=== PATIENT | female | born 1975 | race Caucasian/White ===

== ENCOUNTER 2016-10-17 14:03 | Emergency (ER) | payer BC ==
[~2016-10-17 14:03] MED LIST: BENADRYL25 M1 PO; CLONIDINE HCL0.1 MG PO; CYMBALTA30 MG PO; DOCUSATE SODIU100 MG PO; ENDOCET1 TA3 PO; IBUPROFEN600 MG PO; LOPRESSOR25 MG PO; MILK OF MA400 MG/5 M PO; NEURONTIN100 MG PO; NITROFURANTOIN100 M1 PO; PRILOSEC40 MG PO; TRAZODONE HCL300 MG PO; VENLAFAXINE HCL25 MG PO; [UNRECOGNIZED DRUG - OTHER] PO
--- NOTE | 2016-10-17 16:04 | ED ORDER SUMMARY ---
..... Patient: HITESH DEGROOT OrderSheet [facility] VisitID: [id number] [place] [address] 40y, F Registration Date/Time: 10/17/2016 ORDER SHEET Weight: 63.5 kg (estimated) Allergies: No Known Drug Allergy GENERAL ORDERS: CBC w Diff Urgent (14:34 10/17/2016 ABlanchette PA-C) (14:45 KKnebel R.N.) (Ack 14:45 RKaruga) CMP Urgent (14:34 10/17/2016 ABlanchette PA-C) (14:45 KKnebel R.N.) (Ack 14:45 RKaruga) UA-Culture if indicated Urgent (14:34 10/17/2016 ABlanchette PA-C) (14:45 KKnebel R.N.) (Ack 14:45 RKaruga) CT Abd/Pel wo Cont (severe right flank pain with known history of stones, ) Urgent (14:34 10/17/2016 ABlanchette PA-C) (14:45 KKnebel R.N.) (Ack 14:45 RKaruga) Urine Drug Screen Urgent (15:10/17/2016 ABlanchette PA-C) (Ack 15:13 RKaruga) MEDICATION ORDERS: IV FLUIDS: Dilaudid IV 1 mg (HIGH ALERT MEDICATION, NOW) (14:33 10/17/2016 ABlanchette PA-C) (14:44 KKnebel R.N.) IV NS with Normal Saline 1 Liter: initial bolus none -, then 1000 mL/hr for X1 (NOW) (14:33 10/17/2016 ABlanchette PA-C) (14:44 KKnebel R.N.) Zofran IV 4 mg (NOW) (14:33 10/17/2016 ABlanchette PA-C) (14:45 KKnebel R.N.) Toradol IV 30 mg (NOW) (15:10/17/2016 ABlanchette PA-C) (16:48 KKnebel R.N.) ORDER SHEET NOTES: [Electronically signed by Beena Brown R.N. (22:30 10/17/2016)] [Electronically signed by Yesi Sheehan PA-C (23:41 10/17/2016)] [Electronically locked/signed by Beena Brown R.N. (22:30 10/17/2016)]
--- NOTE | 2016-10-17 16:04 | ED NURSING NOTES ---
Clinical Report - Nurses [facility] [address] [place] [address] 10/17/2016 14:03 Patient: HITESH DEGROOT TRIAGE Triage time 14:17 Oct 17 2016. Acuity: LEVEL 3. Alert. No acute distress. --14:26 Beena Brown R.N. 14:17 10/17/16. BP: 129/87. HR: 97. RR: 20. O2 saturation: 94%. Temp: 98.1 F. Pain level now: 05/31. --14:26 Beena Brown R.N. Chief Complaint: BACK PAIN. 14:26. --16:44 Beena Brown R.N. Weight: 63.5 kg estimated. Height/Length: 63 inches. BMI: 24.8. --14:15 Beena Brown R.N. Medications Unable to Obtain. --14:21 Beena Brown R.N. Allergies No Known Drug Allergy. --14:18 Beena Brown R.N. History Arrived by private vehicle. Historian: patient. ( pt states that she has been having right flank pain for 24 hours). This started yesterday. She has had diarrhea, flank pain, nausea and vomiting. She has had severe lower back pain (since yesterday). It has been similar to previous symptoms. Treatment FIRE SUPPRESSION CAPTAIN: None. PAST MEDICAL HX: Hypertension. Immunizations: up-to-date. The patient has had a hysterectomy. Denies current . SOCIAL HX: Former smoker. Heavy alcohol use; consumes liquor drinks. Last drink was just prior to arrival. No drug use. FALL RISK ASSESSMENT: Fall risk assessment completed. No fall risk identified. NUTRITIONAL RISK ASSESSMENT: The nutritional risk assessment revealed no deficiencies. FUNCTIONAL ASSESSMENT: Functional assessment: no impairments noted. LEARNING NEEDS ASSESSMENT: The learning needs assessment revealed no barriers. SKIN INTEGRITY ASSESSMENT: Skin integrity risk assessment completed. No skin integrity risk identified. --14:26 Beena Brown R.N. PROBLEMS: Hypertension. Sinus Tachycardia. Delirium Tremens. Back Pain. Lifestyle / Substance Problems. Myofascial Strain. Fever. Post-Op Complications. Dyspnea. Abdominal Pain. Prolapse bladder and rectum. Muscle Spasm. Cystitis. Rectal Bleed. Hypomagnesemia. Hypocalcemia. Substance Abuse. Alcohol Withdrawal. Diarrhea. Vomiting. Alcoholism. Drug Poisoning. Suicide Attempt. Suicidal Ideation. Dysuria. Ureterolithiasis. Fall. Contusion. UTI - Urinary Tract Infection. Abrasion(s). Head Injury. Immunizations. LNMP - Last Normal Menstrual Period. Nephrolithiasis. Anxiety Reaction. --14:21 Beena Brown R.N. ADDITIONAL SURGERIES: Breast Augmentation. Hysterectomy. Lithotripsy. Repair of rectecle and bladder. Tummy Tuck. Uterine Ablation. --14:21 Beena Brown R.N. Interventions ID band on patient. To room. --14:26 Beena Brown R.N. PHYSICAL ASSESSMENT GENERAL / NEURO / PSYCH: Alert. Oriented X 4. Appears in pain. HEENT: Mucous membranes are pink. RESPIRATORY: Respirations not labored. CVS: Capillary refill less than 2 seconds. GI / : Abdominal tenderness in the right lower quadrant. SKIN: Skin is warm and dry. --14:27 Beena Brown R.N. NURSING PROGRESS NOTES Patient gowned. Head of bed elevated. Two patient identifiers checked. Call light placed in reach. Side rails up x 1. Bed placed in lowest position. Patient ready for evaluation- chart flagged. --14:27 Beena Brown R.N. 14:33 10/17/2016 Site #1 started via IV in the left hand with an 20g angiocath; one attempt. Blood drawn: rainbow set. Labeled in the presence of the patient and sent to the lab. Saline lock flushed. --14:43 Beena Brown R.N. 14:39 10/17/2016 Started bag #1 1000 mL IV Fluids IV NS (Saline); bolus of 1000 mL over 30 minute(s) via site #1 --14:44 Beena Brown R.N. 14:39 10/17/2016 Dilaudid (HYDROmorphone HCl PF) IVP 1 mg given over 2 minute(s) via site #1. --14:44 Beena Brown R.N. 14:39 10/17/2016 Zofran (Ondansetron HCl) IVP 4 mg given over 2 minute(s) via site #1. Allergies verified and confirmed 5 rights. IV patency established. IV site checked: no pain, redness, or swelling. IV flushed thoroughly pre- and post-medication administration. --14:45 Beena Brown R.N. 15:04 10/17/16. BP: 123/73. HR: 96. O2 saturation: 100%. Pain level now: 03/31. --15:04 Beena Brown R.N. 15:05 10/17/2016 Zofran IVP Response: pain is improving. Symptoms are the same. The patient feels the same. --15:05 Beena Brown R.N. 15:05 10/17/2016 Dilaudid IVP Response: pain is improving. Symptoms are the same. The patient feels the same. --15:05 Beena Brown R.N. 15:48. ( 911 called to notify that PT left AMA after narcotic administration without a service parts driver. Dispatch stated that a contract law specialist will call back.). --[facility] 10/17/2016 Toradol IVP 30 mg given over 2 minute(s) via site #1. Allergies verified and confirmed 5 rights. --16:48 Beena Brown R.N. 15:35 10/17/2016 Toradol IVP Response: (patient eloped from ED. gown and IV found on floor. 911 notified.). --16:49 Beena Brown R.N. DISPOSITION / DISCHARGE Departure time: 1545. ( Nurse went to check on patient and follow up on medications and found gown on ground, IV pulled out and blood droplets on floor. 911 notified that patient had left ED after given narcotics and had ETOH on board. Pt had told nurse that she drove herself to the hospital.). --16:47 Beena Brown R.N. The patient left the Emergency Department without completion of treatment. Gown found on bed. Patient paged once with no response. Notified the ED physician of patient departure. She left the Emergency Department ambulatory and via private vehicle. The patient eloped. --22:30 Beena Brown R.N. Locked/Released at 10/17/2016 22:30 by Beena Brown R.N.
--- NOTE | 2016-10-17 16:04 | ED CLINICAL REPORT ---
Clinical Report - Physicians/Mid Levels [facility] [address] [place] [address] 10/17/2016 14:03 Patient: HITESH DEGROOT Time Seen: 14:08; initial patient contact. Arrived- By private vehicle. Historian- patient. HISTORY OF PRESENT ILLNESS Chief Complaint: FLANK PAIN. (This started yesterday. She has had diarrhea, flank pain, nausea and vomiting. She has had severe lower back pain (since yesterday). It has been similar to previous symptoms. pt states she has had a number of kidney stones and 'surgery to remove stones'. states she thinks she is passing another. has severe right flank pain currently with vomiting and diarrhea.). The symptoms are described as severe. Modifying factors- worsened by movement. Relieved by rest and deep breaths. The patient has had severe, constant, sharp right-sided flank pain with nausea. No missed period(s). The patient has had urinary frequency. She has had urgency of urination. Similar symptoms previously: Many times. Recent medical care: Not recently seen/assessed. REVIEW OF SYSTEMS The patient has had nausea. She has had vomiting and diarrhea. PAST HISTORY See nurses notes. Problems: Hypertension. Back Pain. Dyspnea. Abdominal Pain. Prolapse bladder and rectum. Muscle Spasm. Cystitis. Rectal Bleed. Hypomagnesemia. Hypocalcemia. Substance Abuse. UTI - Urinary Tract Infection. Nephrolithiasis. Anxiety Reaction. Medications: Unable to Obtain. Allergies: No Known Drug Allergy. SOCIAL HISTORY Alcohol use. History of drug use. FAMILY HISTORY Negative. ADDITIONAL NOTES The nursing notes have been reviewed with agreement regarding the chief complaint, HPI, ROS, PMH and patient medications and allergies. PHYSICAL EXAM Vital Signs: 10/17/2016 15:04 BP: 123/73. HR: 96. O2 saturation: 100%. Pain level now: 03/31. 10/17/2016 14:17 BP: 129/87. HR: 97. RR: 20. O2 saturation: 94%. Temp: 98.1 F. Pain level now: 05/31. Have been reviewed. Appearance: Alert. Anxious. Appears to be in pain. Patient in mild distress. Neck: Neck supple. CVS: Heart sounds normal. Respiratory: No respiratory distress. Breath sounds normal. Abdomen: Soft and nontender. Back: Normal external inspection. No CVA tenderness. LABS, X-RAYS, AND EKG Abdominal CT: PROCEDURE: CT ABDOMEN/PELVIS W/O CONTRAST INDICATION: FLANK PAIN TECHNIQUE: Axial CT images were obtained through the abdomen and pelvis without IV contrast. Coronal and sagittal reformations were created. COMPARISON: 12/25/2015 FINDINGS: There are nonobstructing, ill-defined, intrarenal calcifications in the right kidney which are not measurable as discrete calculi. No hydronephrosis. No ureteral calcifications or hydroureter. Breast implants in place. Clear lung bases. Normal sized heart. No hiatal hernia. The unenhanced appearance of the liver, gallbladder, adrenal glands, kidneys, pancreas and spleen is normal. The abdominal aorta is normal in its course and caliber. There are no suspicious calcifications, retroperitoneal adenopathy or masses. The stomach, upper bowel loops, and mesentery are normal. There is mild thickening and irregularity of the left rectus muscle with changes suggesting abdominoplasty. No free fluid or inflammation. The uterus is surgically absent. No calcifications in the urinary bladder or distal ureters. The unenhanced appearance of the urinary bladder, pelvic vessels, and pelvic bowel loops is normal. Normal appendix. No suspicious calcifications, free pelvic fluid or mass. Intact osseous structures. IMPRESSION: 1. Wispy occasional right intrarenal calcifications, not discrete calculi. 2. Interval resolution of previous intrarenal calculi. 3. Hysterectomy and abdominoplasty 4. Findings called to the emergency room. All CT scans at this facility use dose modulation, iterative reconstruction, and/or weight-based dosing when appropriate to reduce radiation dose to as low as reasonably achievable. The study was independently viewed by me, interpreted by the radiologist and discussed with the radiologist. Laboratory Tests: UA-Culture if indicated: (ANKUSH: 10/17/2016 14:30) ( MsgRcvd 10/17/2016 14:58) Final results Test Result Flag Units (Reference) URINE COLOR YELLOW URINE APPEARANCE CLEAR URINE GLUCOSE NEGATIVE (NEGATIVE) URINE BILIRUBIN NEGATIVE (NEGATIVE) URINE KETONE NEGATIVE (NEGATIVE) URINE SPECIFIC GRAVITY <= 1.005 L (1.010-1.030) URINE PH 6.5 (5.0-8.0) URINE PROTEIN NEGATIVE (NEGATIVE) URINE UROBILINOGEN 0.2 EU/dL (0.2-1.0) URINE NITRITE NEGATIVE (NEGATIVE) URINE BLOOD NEGATIVE (NEGATIVE) URINE LEUK ESTERASE NEGATIVE (NEGATIVE) URINE RBC NONE SEEN rbc/hpf (0-1) URINE WBC NONE SEEN wbc/hpf (0-1) URINE EPITHELIAL CELLS 3-5 EPI/hpf (0-5) URINE BACTERIA NONE SEEN (NONE SEEN) URINE COMMENT CULT NOT INDICATED URINE CULTURES ARE SET-UP BASED ON THE FOLLOWING CRITERIA:POSITIVE NITRITEPOSITIVE LEUKOCYTE ESTERASEGREATER THAN 10 WHITE BLOOD CELLSMODERATE (2+) OR GREATER BACTERIA CBC w Diff: (ANKUSH: 10/17/2016 14:30) ( [facility] 10/17/2016 14:58) Final results Test Result Flag Units (Reference) WHITE BLOOD COUNT 8.1 K/uL (4.5-11.5) RED BLOOD COUNT 3.97 L M/uL (4.00-5.20) HEMOGLOBIN 12.9 gm/dL (12.0-16.0) HEMATOCRIT 38.7 % (36.0-46.0) MEAN CELL VOLUME 98 fL (80-100) MEAN CORPUSCULAR HGB 33 pg (26-34) MEAN CORPUSCULAR HGB CONC 33 g/dL (31-37) RED CELL DISTRIBUTION WIDTH 13.0 % (11.6-14.8) PLATELET COUNT 359 K/uL (150-400) NEUTROPHIL % 57.3 % (50-75) LYMPH % 34.7 % (25-40) MONO % 7.7 % (3-14) EOSINOPHIL % 0.1 % (0-4) BASOPHIL % 0.2 % (0-2) Urine Drug Screen: (ANKUSH: 10/17/2016 14:30) ( [facility] 10/17/2016 15:42) Final results Test Result Flag Units (Reference) AMPHETAMINE/METHAMPHETAMINE NEGATIVE (NEGATIVE) BARBITURATE NEGATIVE (NEGATIVE) BENZODIAZEPINE NEGATIVE (NEGATIVE) CANNABINOID NEGATIVE (NEGATIVE) COCAINE POSITIVE H (NEGATIVE) ECSTASY NEGATIVE (NEGATIVE) METHADONE NEGATIVE (NEGATIVE) OPIATE NEGATIVE (NEGATIVE) The urine drug screen is a qualitative screening test fordrug overdose and abuse. All screen results should beconsidered as presumptive.Drugs screened for are as follows:BenzodiazepinesCocaineAmphetamines/MetamphetaminesTHC (Tetrahydrocannabinol)OpiatesBarbituratesEcstasyMethadonePositive results are unconfirmed. For confirmation, notifythe lab for the specimen to be sent to the reference lab.All confirmations must be performed by a differentmethodology.The ingestion of natural herbal and plant productscontaining Ephedra/Ephedra metabolites can produce in urineone or more substances capable of cross reacting withamphetamine/methamphetamine immunoassays. These testsprovide a preliminary result only. A more specificalternative chemical method must be used to obtain aconfirmed analytical result. CMP: (ANKUSH: 10/17/2016 14:30) ( MsgRcvd 10/17/2016 15:04) Final results Test Result Flag Units (Reference) GLUCOSE 125 H mg/dL (70-110) BUN 7 mg/dL (7-18) CREATININE 0.8 mg/dL (0.6-1.3) Estimated GFR >60 mL/min Estimated GFR- >60 mL/min Note: Persistent reduction over 3 months in eGFR<60 mL/min/1.73 m2 defines CKD. Patients with eGFR values>=60 mL/min/1.73 m2 may also have CKD if evidence ofpersistent proteinuria. Additional information may be foundat www.kidney.org. SODIUM 146 H mmol/L (136-145) POTASSIUM 4.0 mmol/L (3.5-5.1) CHLORIDE 107 mmol/L (98-107) CARBON DIOXIDE 22 mmol/L (21-32) CALCIUM 8.9 mg/dL (8.5-10.1) TOTAL PROTEIN 7.8 g/dL (6.4-8.2) ALBUMIN 4.1 g/dL (3.3-5.0) BILIRUBIN, TOTAL 0.2 mg/dL (0.0-1.0) ALKALINE PHOSPHATASE 62 U/L (46-116) AST (SGOT) 20 U/L (15-37) ALT (SGPT) 27 U/L (12-78) . PROGRESS AND PROCEDURES Course of Care: Patient gowned. Head of bed elevated. Two patient identifiers checked. Call light placed in reach. Side rails up x 1. Bed placed in lowest position. Patient ready for evaluation- chart flagged. --14:27 Beena Brown R.N. 14:33 10/17/2016 Site #1 started via IV in the left hand with an 20g angiocath; one attempt. Blood drawn: rainbow set. Labeled in the presence of the patient and sent to the lab. Saline lock flushed. --14:43 Beena Brown R.N. 14:39 10/17/2016 Started bag #1 1000 mL IV Fluids IV NS (Saline); bolus of 1000 mL over 30 minute(s) via site #1 --14:44 Beena Brown R.N. 14:39 10/17/2016 Dilaudid (HYDROmorphone HCl PF) IVP 1 mg given over 2 minute(s) via site #1. --14:44 Beena Brown R.N. 14:39 10/17/2016 Zofran (Ondansetron HCl) IVP 4 mg given over 2 minute(s) via site #1. Allergies verified and confirmed 5 rights. IV patency established. IV site checked: no pain, redness, or swelling. IV flushed thoroughly pre- and post-medication administration. --14:45 Beena Brown R.N. 15:04 10/17/16. BP: 123/73. HR: 96. O2 saturation: 100%. Pain level now: 03/31. --15:04 Beena Brown R.N. 15:05 10/17/2016 Zofran IVP Response: pain is improving. Symptoms are the same. The patient feels the same. --15:05 Beena Brown R.N. 15:05 10/17/2016 Dilaudid IVP Response: pain is improving. Symptoms are the same. The patient feels the same. --15:05 Beena Brown R.N. 15:48. ( 911 called to notify that PT left AMA after narcotic administration without a boom truck driver. Dispatch stated that a contract law specialist will call back.). --16:08 Maricarmen Rojas 15:15 10/17/2016 Toradol IVP 30 mg given over 2 minute(s) via site #1. Allergies verified and confirmed 5 rights. --16:48 Beena Borwn R.N. 15:35 10/17/2016 Toradol IVP Response: (patient eloped from ED. gown and IV found on floor. 911 notified.). --16:49 Beena Brown, R.NBreonna 1550. Patient is stable. Symptoms better. CLINICAL IMPRESSION Acute right flank pain. Substance abuse problems: abuse of alcohol and cocaine. INSTRUCTIONS (LEFT AMA after receiving toradol for pain. Andrew form initiated). Warnings: GENERAL WARNINGS: Return or contact your physician immediately if your condition worsens or changes unexpectedly, if not improving as expected, or if other problems arise. Understanding of the discharge instructions verbalized by patient. (Electronically signed by Yesi Sheehan PA-C 10/17/2016 23:41)
--- NOTE | 2016-10-17 16:04 | ED NURSING NOTES ---
Clinical Report - Nurses [facility] [address] [place] [address] 10/17/2016 14:03 Patient: HITESH DEGROOT TRIAGE Triage time 14:17 Oct 17 2016. Acuity: LEVEL 3. Alert. No acute distress. --14:26 Beena Brown R.N. 14:17 10/17/16. BP: 129/87. HR: 97. RR: 20. O2 saturation: 94%. Temp: 98.1 F. Pain level now: 05/31. --14:26 Beena Brown R.N. Chief Complaint: BACK PAIN. 14:26. --16:44 Beena Brown R.N. Weight: 63.5 kg estimated. Height/Length: 63 inches. BMI: 24.8. --14:15 Beena Brown R.N. Medications Unable to Obtain. --14:21 Beena Brown R.N. Allergies No Known Drug Allergy. --14:18 Beena Brown R.N. History Arrived by private vehicle. Historian: patient. ( pt states that she has been having right flank pain for 24 hours). This started yesterday. She has had diarrhea, flank pain, nausea and vomiting. She has had severe lower back pain (since yesterday). It has been similar to previous symptoms. Treatment MARITIME PILOT: None. PAST MEDICAL HX: Hypertension. Immunizations: up-to-date. The patient has had a hysterectomy. Denies current . SOCIAL HX: Former smoker. Heavy alcohol use; consumes liquor drinks. Last drink was just prior to arrival. No drug use. FALL RISK ASSESSMENT: Fall risk assessment completed. No fall risk identified. NUTRITIONAL RISK ASSESSMENT: The nutritional risk assessment revealed no deficiencies. FUNCTIONAL ASSESSMENT: Functional assessment: no impairments noted. LEARNING NEEDS ASSESSMENT: The learning needs assessment revealed no barriers. SKIN INTEGRITY ASSESSMENT: Skin integrity risk assessment completed. No skin integrity risk identified. --14:26 Beena Brown R.N. PROBLEMS: Hypertension. Sinus Tachycardia. Delirium Tremens. Back Pain. Lifestyle / Substance Problems. Myofascial Strain. Fever. Post-Op Complications. Dyspnea. Abdominal Pain. Prolapse bladder and rectum. Muscle Spasm. Cystitis. Rectal Bleed. Hypomagnesemia. Hypocalcemia. Substance Abuse. Alcohol Withdrawal. Diarrhea. Vomiting. Alcoholism. Drug Poisoning. Suicide Attempt. Suicidal Ideation. Dysuria. Ureterolithiasis. Fall. Contusion. UTI - Urinary Tract Infection. Abrasion(s). Head Injury. Immunizations. LNMP - Last Normal Menstrual Period. Nephrolithiasis. Anxiety Reaction. --14:21 Beena Brown R.N. ADDITIONAL SURGERIES: Breast Augmentation. Hysterectomy. Lithotripsy. Repair of rectecle and bladder. Tummy Tuck. Uterine Ablation. --14:21 Beena Brown R.N. Interventions ID band on patient. To room. --14:26 Beena Brown R.N. PHYSICAL ASSESSMENT GENERAL / NEURO / PSYCH: Alert. Oriented X 4. Appears in pain. HEENT: Mucous membranes are pink. RESPIRATORY: Respirations not labored. CVS: Capillary refill less than 2 seconds. GI / : Abdominal tenderness in the right lower quadrant. SKIN: Skin is warm and dry. --14:27 Beena Brown R.N. NURSING PROGRESS NOTES Patient gowned. Head of bed elevated. Two patient identifiers checked. Call light placed in reach. Side rails up x 1. Bed placed in lowest position. Patient ready for evaluation- chart flagged. --14:27 Beena Brown R.N. 14:33 10/17/2016 Site #1 started via IV in the left hand with an 20g angiocath; one attempt. Blood drawn: rainbow set. Labeled in the presence of the patient and sent to the lab. Saline lock flushed. --14:43 Beena Brown R.N. 14:39 10/17/2016 Started bag #1 1000 mL IV Fluids IV NS (Saline); bolus of 1000 mL over 30 minute(s) via site #1 --14:44 Beena Brown R.N. 14:39 10/17/2016 Dilaudid (HYDROmorphone HCl PF) IVP 1 mg given over 2 minute(s) via site #1. --14:44 Beena Brown R.N. 14:39 10/17/2016 Zofran (Ondansetron HCl) IVP 4 mg given over 2 minute(s) via site #1. Allergies verified and confirmed 5 rights. IV patency established. IV site checked: no pain, redness, or swelling. IV flushed thoroughly pre- and post-medication administration. --14:45 Beena Brown R.N. 15:04 10/17/16. BP: 123/73. HR: 96. O2 saturation: 100%. Pain level now: 03/31. --15:04 Beena Brown R.N. 15:05 10/17/2016 Zofran IVP Response: pain is improving. Symptoms are the same. The patient feels the same. --15:05 Beena Brown R.N. 15:05 10/17/2016 Dilaudid IVP Response: pain is improving. Symptoms are the same. The patient feels the same. --15:05 Beena Brown R.N. 15:48. ( 911 called to notify that PT left AMA after narcotic administration without a haul driver. Dispatch stated that a network security officer will call back.). --16[facility] 10/17/2016 Toradol IVP 30 mg given over 2 minute(s) via site #1. Allergies verified and confirmed 5 rights. --16:48 Beena Brown R.N. 15:35 10/17/2016 Toradol IVP Response: (patient eloped from ED. gown and IV found on floor. 911 notified.). --16:49 Beena Brown R.N. DISPOSITION / DISCHARGE Departure time: 1545. ( Nurse went to check on patient and follow up on medications and found gown on ground, IV pulled out and blood droplets on floor. 911 notified that patient had left ED after given narcotics and had ETOH on board. Pt had told nurse that she drove herself to the hospital.). --16:47 Beena Brown R.N. The patient left the Emergency Department without completion of treatment. Gown found on bed. Patient paged once with no response. Notified the ED physician of patient departure. She left the Emergency Department ambulatory and via private vehicle. The patient eloped. --22:30 Beena Brown R.N. Locked/Released at 10/17/2016 22:30 by Beena Brown R.N.
--- NOTE | 2016-10-17 16:04 | ED ORDER SUMMARY ---
..... Patient: HITESH DEGROOT OrderSheet [facility] VisitID: [id number] [place] [address] 40y, F Registration Date/Time: 10/17/2016 ORDER SHEET Weight: 63.5 kg (estimated) Allergies: No Known Drug Allergy GENERAL ORDERS: CBC w Diff Urgent (14:34 10/17/2016 ABlanchette PA-C) (14:45 KKnebel R.N.) (Ack 14:45 RKaruga) CMP Urgent (14:34 10/17/2016 ABlanchette PA-C) (14:45 KKnebel R.N.) (Ack 14:45 RKaruga) UA-Culture if indicated Urgent (14:34 10/17/2016 ABlanchette PA-C) (14:45 KKnebel R.N.) (Ack 14:45 RKaruga) CT Abd/Pel wo Cont (severe right flank pain with known history of stones, ) Urgent (14:34 10/17/2016 ABlanchette PA-C) (14:45 KKnebel R.N.) (Ack 14:45 RKaruga) Urine Drug Screen Urgent (15:10/17/2016 ABlanchette PA-C) (Ack 15:13 RKaruga) MEDICATION ORDERS: IV FLUIDS: Dilaudid IV 1 mg (HIGH ALERT MEDICATION, NOW) (14:33 10/17/2016 ABlanchette PA-C) (14:44 KKnebel R.N.) IV NS with Normal Saline 1 Liter: initial bolus none -, then 1000 mL/hr for X1 (NOW) (14:33 10/17/2016 ABlanchette PA-C) (14:44 KKnebel R.N.) Zofran IV 4 mg (NOW) (14:33 10/17/2016 ABlanchette PA-C) (14:45 KKnebel R.N.) Toradol IV 30 mg (NOW) (15:10/17/2016 ABlanchette PA-C) (16:48 KKnebel R.N.) ORDER SHEET NOTES: [Electronically signed by Beena Brown R.N. (22:30 10/17/2016)] [Electronically signed by Yesi Sheehan PA-C (23:41 10/17/2016)] [Electronically locked/signed by Beena Brown R.N. (22:30 10/17/2016)]
--- NOTE | 2016-10-17 17:01 | DIAGNOSTIC IMAGING REPORT ---
PROCEDURE: CT ABDOMEN/PELVIS W/O CONTRAST INDICATION: FLANK PAIN TECHNIQUE: Axial CT images were obtained through the abdomen and pelvis without IV contrast. Coronal and sagittal reformations were created. COMPARISON: 12/25/2015 FINDINGS: There are nonobstructing, ill-defined, intrarenal calcifications in the right kidney which are not measurable as discrete calculi. No hydronephrosis. No ureteral calcifications or hydroureter. Breast implants in place. Clear lung bases. Normal sized heart. No hiatal hernia. The unenhanced appearance of the liver, gallbladder, adrenal glands, kidneys, pancreas and spleen is normal. The abdominal aorta is normal in its course and caliber. There are no suspicious calcifications, retroperitoneal adenopathy or masses. The stomach, upper bowel loops, and mesentery are normal. There is mild thickening and irregularity of the left rectus muscle with changes suggesting abdominoplasty. No free fluid or inflammation. The uterus is surgically absent. No calcifications in the urinary bladder or distal ureters. The unenhanced appearance of the urinary bladder, pelvic vessels, and pelvic bowel loops is normal. Normal appendix. No suspicious calcifications, free pelvic fluid or mass. Intact osseous structures. IMPRESSION: 1. Wispy occasional right intrarenal calcifications, not discrete calculi. 2. Interval resolution of previous intrarenal calculi. 3. Hysterectomy and abdominoplasty 4. Findings called to the emergency room. All CT scans at this facility use dose modulation, iterative reconstruction, and/or weight-based dosing when appropriate to reduce radiation dose to as low as reasonably achievable.
--- NOTE | 2016-10-17 23:41 | ED MED RECONCILIATION SUMMARY ---
Patient: HITESH DEGROOT Medication Reconciliation Report [facility] VisitID: [id number] [address] [place] [address] 40y, F Registration Date/Time: 10/17/2016 Weight: 63.5 kg Height/Length: 63 in. BMI: 24.8 ALLERGIES: No Known Drug Allergy The patient's Home Medications are listed below: Unable to obtain. The source(s) of the original Home Medication information: Not obtained. The following Medications were given to the patient in the Emergency Department: IV NS IV Fluids bolus 1000 mL over 30 minute(s), administered: 10/17/2016 2:39:00 PM Dilaudid [IVP] IVP 1 mg, administered: 10/17/2016 2:39:00 PM Zofran [IVP] IVP 4 mg, administered: 10/17/2016 2:39:00 PM Toradol [IVP] IVP 30 mg, administered: 10/17/2016 3:15:00 PM The following Medications were prescribed to the patient: None.
--- NOTE | 2016-10-17 23:41 | ED MED RECONCILIATION SUMMARY ---
Patient: HITESH DEGROOT Medication Reconciliation Report [facility] VisitID: [id number] [address] [place] [address] 40y, F Registration Date/Time: 10/17/2016 Weight: 63.5 kg Height/Length: 63 in. BMI: 24.8 ALLERGIES: No Known Drug Allergy The patient's Home Medications are listed below: Unable to obtain. The source(s) of the original Home Medication information: Not obtained. The following Medications were given to the patient in the Emergency Department: IV NS IV Fluids bolus 1000 mL over 30 minute(s), administered: 10/17/2016 2:39:00 PM Dilaudid [IVP] IVP 1 mg, administered: 10/17/2016 2:39:00 PM Zofran [IVP] IVP 4 mg, administered: 10/17/2016 2:39:00 PM Toradol [IVP] IVP 30 mg, administered: 10/17/2016 3:15:00 PM The following Medications were prescribed to the patient: None.
--- NOTE | 2016-10-17 23:41 | ED DISCHARGE INSTRUCTIONS ---
Patient: HITESH DEGROOT General Instructions [facility] VisitID: [id number] [place] [address] 40y, F Registration Date/Time: 10/17/2016 Acute right flank pain. Substance abuse problems: abuse of alcohol and cocaine. INSTRUCTIONS (LEFT AMA after receiving toradol for pain. Andrew form initiated). Warnings: GENERAL WARNINGS: Return or contact your physician immediately if your condition worsens or changes unexpectedly, if not improving as expected, or if other problems arise. Understanding of the discharge instructions verbalized by patient. ADDITIONAL INFORMATION Pain Management: Chronic You have a painful condition that has required frequent use of narcotic-type pain medicine. We would like to see that you receive the best possible care for your problem. To achieve this, you must have apersonal physician who can supervise a treatment plan for you. You may locate a personal physician on your own or contact one of the doctors whose name has been given to you. If your physician determines that you need to visit the ER for pain control, that doctor should provide you with a PAIN CONTRACT. This is a letter from your doctor which describes what pain medicine you may receive, how much and how often. You sign it agreeing to the terms of the treatment plan. Bring this with you each time you come to this facility. It will help the Emergency Physician provide the proper treatment for you with minimal delay. Please Note: IN THE FUTURE YOU WILL NOT BE ABLE TO RECEIVE Narcotic Pain Medicine From This Facility Without A Pain Contract Or Telephone Approval From Your Personal Physician. You have been given the following additional information: Drug Seeking Behavior, Pain Contract Required (Electronically signed by Yesi Sheehan PA-C 10/17/2016 23:41)
--- NOTE | 2016-10-17 23:41 | ED MAR SUMMARY ---
..... Medication Administration Record [facility] [address] [place] [address] Patient: HITESH DEGROOT Visit ID: [id number] 40y, F Weight: 63.5 kg Height/Length: 63 in BMI: 24.8 ALLERGIES: No Known Drug Allergy Given 14:39 10/17/2016 Beena Brown R.N. Medication Administered: DILAUDID [IVP] (HYDROMORPHONE HCL PF), Dose: 1 mg IVP over 2 minute(s), Site: #1 left hand. Medication Ordered: Dilaudid IV 1 mg (HIGH ALERT MEDICATION, NOW). Start 14:39 10/17/2016 Beena Brown R.N. Medication Administered: IV NS (SALINE), Dose: IV Fluids, Bolus: 1000 mL over 30 minute(s), Dispensed: 1000 mL bag, Site: #1 left hand. Medication Ordered: IV NS with Normal Saline 1 Liter: initial bolus none -, then 1000 mL/hr for X1 (NOW). Given 14:39 10/17/2016 Beena Brown R.N. Medication Administered: ZOFRAN [IVP] (ONDANSETRON HCL), Dose: 4 mg IVP over 2 minute(s), Site: #1 left hand. Medication Ordered: Zofran IV 4 mg (NOW). Given 15:15 10/17/2016 Beena Brown R.N. Medication Administered: TORADOL [IVP], Dose: 30 mg IVP over 2 minute(s), Site: #1 left hand. Medication Ordered: Toradol IV 30 mg (NOW).
--- NOTE | 2016-10-17 23:41 | ED DISCHARGE INSTRUCTIONS ---
Patient: HITESH DEGROOT General Instructions [facility] VisitID: [id number] [place] [address] 40y, F Registration Date/Time: 10/17/2016 Acute right flank pain. Substance abuse problems: abuse of alcohol and cocaine. INSTRUCTIONS (LEFT AMA after receiving toradol for pain. Andrew form initiated). Warnings: GENERAL WARNINGS: Return or contact your physician immediately if your condition worsens or changes unexpectedly, if not improving as expected, or if other problems arise. Understanding of the discharge instructions verbalized by patient. ADDITIONAL INFORMATION Pain Management: Chronic You have a painful condition that has required frequent use of narcotic-type pain medicine. We would like to see that you receive the best possible care for your problem. To achieve this, you must have apersonal physician who can supervise a treatment plan for you. You may locate a personal physician on your own or contact one of the doctors whose name has been given to you. If your physician determines that you need to visit the ER for pain control, that doctor should provide you with a PAIN CONTRACT. This is a letter from your doctor which describes what pain medicine you may receive, how much and how often. You sign it agreeing to the terms of the treatment plan. Bring this with you each time you come to this facility. It will help the Emergency Physician provide the proper treatment for you with minimal delay. Please Note: IN THE FUTURE YOU WILL NOT BE ABLE TO RECEIVE Narcotic Pain Medicine From This Facility Without A Pain Contract Or Telephone Approval From Your Personal Physician. You have been given the following additional information: Drug Seeking Behavior, Pain Contract Required (Electronically signed by Yesi Sheehan PA-C 10/17/2016 23:41)
--- NOTE | 2016-10-17 23:41 | ED MAR SUMMARY ---
..... Medication Administration Record [facility] [address] [place] [address] Patient: HITESH DEGROOT Visit ID: [id number] 40y, F Weight: 63.5 kg Height/Length: 63 in BMI: 24.8 ALLERGIES: No Known Drug Allergy Given 14:39 10/17/2016 Beena Brown R.N. Medication Administered: DILAUDID [IVP] (HYDROMORPHONE HCL PF), Dose: 1 mg IVP over 2 minute(s), Site: #1 left hand. Medication Ordered: Dilaudid IV 1 mg (HIGH ALERT MEDICATION, NOW). Start 14:39 10/17/2016 Beena Brown R.N. Medication Administered: IV NS (SALINE), Dose: IV Fluids, Bolus: 1000 mL over 30 minute(s), Dispensed: 1000 mL bag, Site: #1 left hand. Medication Ordered: IV NS with Normal Saline 1 Liter: initial bolus none -, then 1000 mL/hr for X1 (NOW). Given 14:39 10/17/2016 Beena Brown R.N. Medication Administered: ZOFRAN [IVP] (ONDANSETRON HCL), Dose: 4 mg IVP over 2 minute(s), Site: #1 left hand. Medication Ordered: Zofran IV 4 mg (NOW). Given 15:15 10/17/2016 Beena Brown R.N. Medication Administered: TORADOL [IVP], Dose: 30 mg IVP over 2 minute(s), Site: #1 left hand. Medication Ordered: Toradol IV 30 mg (NOW).
== END 2016-10-17 16:00 | disposition left against medical advice (07) ==
LOC: ED SRH 14:03
DX: R10.32 Left lower quadrant pain (principal); F14.10 Cocaine abuse, uncomplicated; F10.10 Alcohol abuse, uncomplicated; I10 Essential (primary) hypertension
CPT/HCPCS: 90004; 90100; 92760; 92761; 92762; 92763; 92764; 92765; 92766; 92767; 95059

== ENCOUNTER 2017-02-19 00:21 | Emergency (ER) | payer BC ==
--- NOTE | 2017-02-19 03:15 | ED ORDER SUMMARY ---
..... Patient: HITESH DEGROOT OrderSheet [facility] VisitID: [id number] [place] [address] 41y, F Registration Date/Time: 02/19/2017 ORDER SHEET Weight: 66.2 kg (stated) Allergies: No Known Drug Allergy GENERAL ORDERS: CT Head wo Cont Urgent (00:38 02/19/2017 Hiro Newman) (Ack 0:40 AMcQuoid ER Tech1) (1:13 CBradburn R.N.) CBC w Diff Urgent (00:39 02/19/2017 Hiro Newman) (Ack 0:40 AMcQuoid ER Tech1) (1:13 CBradburn R.N.) CMP Urgent (00:39 02/19/2017 Hiro Newman) (Ack 0:40 AMcQuoid ER Tech1) (1:13 CLradburn R.N.) UA-Culture if indicated Urgent (00:39 02/19/2017 Hiro Newman) (Ack 0:40 AMcQuoid ER Tech1) (1:13 CBradburn R.N.) PT with INR Urgent (00:39 02/19/2017 Hiro Newman) (Ack 0:40 AMcQuoid ER Tech1) (1:13 CLradburn R.N.) TSH Urgent (00:39 02/19/2017 Hiro Newman) (Ack 0:40 AMcQuoid ER Tech1) (1:13 Earl R.N.) Pulse oximeter (00:39 02/19/2017 Hiro Newman) (Ack 0:40 AMcQuoid ER Tech1) (1:13 CBradburn R.N.) MEDICATION ORDERS: Phenergan IV 25 mg (HIGH ALERT MEDICATION, NOW) (00:38 02/19/2017 Hiro Newman) (Ack 1:13 CBradarlin R.N.) (1:26 CBradburn R.N.) - (compazine 10 mg IV once now) (02:14 02/19/2017 Hiro Newman) (Ack 2:17 CBradarlin R.N.) (Ack 2:20 HSoule) (Cancelled: Unavailable/Mat/Equip3:29 CBradarlin R.N.) IV FLUIDS: Benadryl IV 25 mg (NOW) (00:39 02/19/2017 Hiro Newman) (Ack 1:13 CBradarlin R.N.) (1:26 CBradburn R.N.) Toradol IV 30 mg (NOW) (00:39 02/19/2017 Hiro Newman) (Ack 1:13 Earl R.N.) (1:26 Earl R.N.) IV Saline Lock (00:39 02/19/2017 Hiro Newman) (Ack 1:13 Earl R.N.) (1:25 Earl R.N.) Fentanyl IV 50 mcg (HIGH ALERT MEDICATION, NOW) (02:13 02/19/2017 Hiro Newman) (Ack 2:17 CBradarlin R.N.) (Ack 2:20 HSoule) (2:26 CLradarlin R.N.) ORDER SHEET NOTES: [Electronically signed by Mae Reyes R.N. (03:35 02/19/2017)] [Electronically signed by Edgar Travis Dr. (07:02/19/2017)] [Electronically locked/signed by Mae Reyes R.N. (03:35 02/19/2017)]
--- NOTE | 2017-02-19 03:15 | ED CLINICAL REPORT ---
Clinical Report - Physicians/Mid Levels [facility] [address] [address] 02/19/2017 0:22 Patient: HITESH DEGROOT Time Seen: 0031; initial patient contact. Arrived- By private vehicle. Historian- patient. HISTORY OF PRESENT ILLNESS Chief Complaint: CHANGED MENTAL STATUS. This started past 5 days, is still present and patient was last known well (5 days ago). The patient has "felt strange". (patient states she sometimes mixes up her words.). The patient was not found unresponsive. No alcohol recently or recent drug use. The patient has had generalized weakness. No numbness or recent fall. No difficulty walking. Usually is alert and oriented X3 and usually has normal mobility. Similar symptoms previously: Once. ( when withdrawing from alcohol per significant other. states she has been clean since the.). Recent medical care: Not recently seen/assessed. REVIEW OF SYSTEMS The patient has had a moderate, constant headache (right sided). The headache was gradual in onset. The headache has been similar to previous ones. No chest pain or difficulty breathing. All systems otherwise negative, except as recorded above. PAST HISTORY See nurses notes. Medications: Chantix Oral (Tablet 1 mg) 1 tablet, dialy. Wellbutrin Oral 300mg, daily. Gabapentin Oral (Tablet 600 mg) 2 tablets, daily. Topamax Oral (Tablet 200 mg) 1 tablet, daily. Effexor XR Oral 225mg, daily. TraZODone HCl Oral (Tablet 100 mg) 2 tablets, at bedtime. Depakote Oral 1000 mg, daily. Allergies: No Known Drug Allergy. SOCIAL HISTORY Never smoker. Alcohol use. Patient is a recovering alcoholic. No drug use. No recent travel. Is a local resident. ADDITIONAL NOTES The nursing notes have been reviewed. PHYSICAL EXAM Vital Signs: 02/19/2017 00:25 BP: 141/83. HR: 79. RR: 18. O2 saturation: 97%. Temp: 97.9 F. Pain level now: 3/10. Oxygen saturation normal. Appearance: Alert. No acute distress. (Polite. Cooperative.). Head: Head atraumatic. Eyes: Pupils equal, round and reactive to light. ENT: Normal ENT inspection. Airway intact. Moist mucous membranes. Pharynx normal. Neck: Normal inspection. Neck supple. No meningeal signs. CVS: Normal heart rate and rhythm. Heart sounds normal. Pulses normal. Respiratory: No respiratory distress. Breath sounds normal. Abdomen: Soft and nontender. No organomegaly. Skin: Skin warm and dry. Normal skin color. No rash. Normal skin turgor. Extremities: Extremities exhibit normal ROM. No lower extremity edema. Neuro: Alert. Oriented X 3. Mood/affect normal. Speech normal. Cranial nerves normal (as tested). No cerebellar findings. No motor deficit. No sensory deficit. Reflexes normal. LABS, X-RAYS, AND EKG Laboratory Tests: UA-Culture if indicated: (ANKUSH: 02/19/2017 01:06) ( [facility] [place]:41[place] Final results Test Result Flag Units (Reference) URINE COLOR YELLOW URINE APPEARANCE CLEAR URINE GLUCOSE NEGATIVE (NEGATIVE) URINE BILIRUBIN NEGATIVE (NEGATIVE) URINE KETONE NEGATIVE (NEGATIVE) URINE SPECIFIC GRAVITY 1.010 (1.010-1.030) URINE PH 7.0 (5.0-8.0) URINE PROTEIN NEGATIVE (NEGATIVE) URINE UROBILINOGEN 0.2 EU/dL (0.2-1.0) URINE NITRITE NEGATIVE (NEGATIVE) URINE BLOOD NEGATIVE (NEGATIVE) URINE LEUK ESTERASE NEGATIVE (NEGATIVE) URINE RBC RARE rbc/hpf (0-1) URINE WBC 0-1 wbc/hpf (0-1) URINE EPITHELIAL CELLS 3-5 EPI/hpf (0-5) URINE BACTERIA NONE SEEN (NONE SEEN) URINE COMMENT CULT NOT INDICATED 1+ AMORPHOUSURINE CULTURES ARE SET-UP BASED ON THE FOLLOWING CRITERIA:POSITIVE NITRITEPOSITIVE LEUKOCYTE ESTERASEGREATER THAN 10 WHITE BLOOD CELLSMODERATE (2+) OR GREATER BACTERIA CBC w Diff: (ANKUSH: 02/19/2017 01:06) ( [facility] [place]:19) Final results Test Result Flag Units (Reference) WHITE BLOOD COUNT 10.2 K/uL (4.5-11.5) RED BLOOD COUNT 4.15 M/uL (4.00-5.20) HEMOGLOBIN 13.8 gm/dL (12.0-16.0) HEMATOCRIT 40.5 % (36.0-46.0) MEAN CELL VOLUME 98 fL (80-100) MEAN CORPUSCULAR HGB 33 pg (26-34) MEAN CORPUSCULAR HGB CONC 34 g/dL (31-37) RED CELL DISTRIBUTION WIDTH 12.4 % (11.6-14.8) PLATELET COUNT 225 K/uL (150-400) NEUTROPHIL % 54.1 % (50-75) LYMPH % 33.7 % (25-40) MONO % 8.6 % (3-14) EOSINOPHIL % 3.4 % (0-4) BASOPHIL % 0.2 % (0-2) PT with INR: (ANKUSH: 02/19/2017 01:06) ( [facility] [place] 01:38) Final results Test Result Flag Units (Reference) INR 1.1 (0.8-1.2) Low Intensity Therapy: INR 1.5-2.0 PT range 18.5-23.1Mod.Intensity Therapy: INR 2.0-3.0 PT range 23.1-31.5High Intensity Therapy: INR 2.5-3.5 PT range 27.4-35.5High Intensity Therapy 2: INR 3.0-4.0 PT range 31.5-39.3 CMP: (ANKUSH: 02/19/2017 01:06) ( [facility] 02/19/2017 01:41) Final results Test Result Flag Units (Reference) GLUCOSE 94 mg/dL (70-110) BUN 12 mg/dL (7-18) CREATININE 1.1 mg/dL (0.6-1.3) Estimated GFR 58.18 mL/min Estimated GFR- >60 mL/min Note: Persistent reduction over 3 months in eGFR<60 mL/min/1.73 m2 defines CKD. Patients with eGFR values>=60 mL/min/1.73 m2 may also have CKD if evidence ofpersistent proteinuria. Additional information may be foundat www.kidney.org. SODIUM 141 mmol/L (136-145) POTASSIUM 3.6 mmol/L (3.5-5.1) CHLORIDE 106 mmol/L (98-107) CARBON DIOXIDE 25 mmol/L (21-32) CALCIUM 8.5 mg/dL (8.5-10.1) TOTAL PROTEIN 7.2 g/dL (6.4-8.2) ALBUMIN 3.7 g/dL (3.3-5.0) BILIRUBIN, TOTAL 0.2 mg/dL (0.0-1.0) ALKALINE PHOSPHATASE 63 U/L (46-116) AST (SGOT) 11 L U/L (15-37) ALT (SGPT) 26 U/L (12-78) THYROID STIMULATING HORMONE 3.845 H uIU/mL (0.34-3.74) . PROGRESS AND PROCEDURES Course of Care: The patient is a pleasant 41-year-old female with complex past medical history presenting for evaluation of altered mental status. Patient has a nonfocal neurological examination. Symptoms have been ongoing for the past 5-6 days. Patient is also reporting a headache. At this time differential diagnosis is broad. Patient will be evaluated with a CT scan of the head for any acute intracranial abnormalities given patient's deficits. Patient is outside of the window for TPA. Patient also been evaluated for possible metabolic abnormalities which could potentially cause her symptoms today. Medications for headache provided. Patient is agreeable to the treatment and plan. The patient'ssymptoms significantly improved with the interventions provided here in the emergency department. Patient did require second dose of pain medication for the headache. Patient does not have any acute abnormalities on CT scan of the head or onlaboratory studies. Because of the patient's negative workup here in the emergency department, do not fill patient requires admission to the hospital or further emergency department workup/evaluation. Patient is a 30 establish care with a primary care Dr. Patient does have a scheduled appointmentin the next week or 2. Discussed with the patient and the patient's significant otherper patient's request there workup here in the emergency department including diagnosis, home care, follow-up, and return precautions. All questions have been answered. The patient and significant other expressed understanding of these instructions and was agreeable to them. Disposition: Discharged. Condition: good. CLINICAL IMPRESSION Acute mental status change with lethargy. 02/19/2017 02:26 BP: 135/80. HR: 80. RR: 18. O2 saturation: 98%. Pain level now: 7/10. Blood pressure normal. Oxygen saturation normal. INSTRUCTIONS Warnings: GENERAL WARNINGS: Return or contact your physician immediately if your condition worsens or changes unexpectedly, if not improving as expected, or if other problems arise. Specifically return if pain, vomiting, bleeding, breathing difficulty or fever. change in behavior, numbness, tingling, weakness. Your Current Medications: CONTINUE TAKING THE FOLLOWING MEDICATIONS: Chantix Oral : Tablet 1 mg, 1 tablet dialy. Depakote Oral : 1000 mg daily. Effexor XR Oral : 225mg daily. Gabapentin Oral : Tablet 600 mg, 2 tablets daily. Topamax Oral : Tablet 200 mg, 1 tablet daily. TraZODone HCl Oral : Tablet 100 mg, 2 tablets at bedtime. Wellbutrin Oral : 300mg daily. Prescription Medications: Compazine 10 mg tablets: take 1 orally every 8 hours as needed for nausea, vomiting or motion sickness. Dispense twenty (20). Substitution is permissible Follow-up: Return to the emergency department as needed. Follow up with your doctor in three days. Reason for referral: recheck today's concerns. Summary of care provided to patient via paper. Screening today revealed the patient's blood pressure to be in the normal range. The patient should follow up with a primary care provider for blood pressure management. Understanding of the discharge instructions verbalized by patient. Follow-up with: Arpita Crane MD, Nephrology, , [facility], [address] [place] [address], [place], [id number] Follow up. Call for the next available appointment. Reason for referral: recheck today's concerns. Summary of care provided to patient via paper. (Electronically signed by Edgar Travis Dr. 02/19/2017 7:25)
--- NOTE | 2017-02-19 03:15 | ED NURSING NOTES ---
Clinical Report - Nurses [address] [place] [address] 02/19/2017 0:22 Patient: HTIESH DEGROOT TRIAGE Triage time 00:25. Acuity: LEVEL 3. Chief Complaint: WEAKNESS and "FELT STRANGE". --00:44 Mae Reyes R.N. 00:25 02/19/17. BP: 141/83 taken on the left arm, while lying. HR: 79 (regular and normal rate). RR: 18 (regular and unlabored). O2 saturation: 97% on room air. Temp: 97.9 F (oral). Pain level now: 10/29. --00:44 Mae Reyes R.N. Weight: 66.2 kg stated. Height/Length: 63 inches Per Patient. BMI: 25.9. --00:42 Mae Reyes R.N. Medications Depakote Oral 1000 mg, daily. --00:46 Mae Reyes R.N. TraZODone HCl Oral (Tablet 100 mg) 2 tablets, at bedtime. --00:47 Mae Reyes R.N. Effexor XR Oral 225mg, daily. --00:47 Mae Reyes R.N. Topamax Oral (Tablet 200 mg) 1 tablet, daily. --00:47 Mae Reyes R.N. Gabapentin Oral (Tablet 600 mg) 2 tablets, daily. --00:47 Mae Reyes R.N. Wellbutrin Oral 300mg, daily. --00:48 Mae Reyes R.N. Chantix Oral (Tablet 1 mg) 1 tablet, dialy. --00:50 Mae Reyes R.N. Allergies No Known Drug Allergy. --00:50 Mae Reyes R.N. History Arrived by private vehicle. Historian: patient. Accompanied by family. Primary physician ([place]). This started Tuesday. ( pt reports left foot numbness, tremors all over, headache since tuesday " just does not feel right", pt c/o stuttering). She has had generalized weakness (6 days ago). PAST MEDICAL HX: The patient has had a hysterectomy. SOCIAL HX: Smoker- current status unknown. Alcohol use. (about 4 months ago). No drug use. No infectious disease exposure. ABUSE ASSESSMENT: No report of abuse. SELF HARM ASSESSMENT: A self harm assessment was performed. The patient answered "no" to the question "Have you recently felt down, depressed, or hopeless?", "Have you noticed less interest or pleasure in doing things?", "Do you have thoughts of harming or killing yourself?", "Are you here because you tried to hurt yourself?", "Have you ever tried to hurt yourself before today?", "Have you recently had thoughts about harming or killing others?" and "Do you have any dangerous items in your possession?". FALL RISK ASSESSMENT: Fall risk assessment completed. No fall risk identified. NUTRITIONAL RISK ASSESSMENT: The nutritional risk assessment revealed no deficiencies. FUNCTIONAL ASSESSMENT: Functional assessment: no impairments noted. LEARNING NEEDS ASSESSMENT: The learning needs assessment revealed no barriers. SKIN INTEGRITY ASSESSMENT: Skin integrity risk assessment completed. No skin integrity risk identified. --00:44 Mae Reyes R.N. PROBLEMS: Flank Pain. Hypertension. Sinus Tachycardia. Delirium Tremens. Back Pain. Lifestyle / Substance Problems. Myofascial Strain. Fever. Post-Op Complications. Dyspnea. Abdominal Pain. Prolapse bladder and rectum. Muscle Spasm. Cystitis. Rectal Bleed. Hypomagnesemia. Hypocalcemia. Substance Abuse. Alcohol Withdrawal. Diarrhea. Vomiting. Alcoholism. Drug Poisoning. Suicide Attempt. Suicidal Ideation. Dysuria. Ureterolithiasis. Fall. Contusion. UTI - Urinary Tract Infection. Abrasion(s). Head Injury. Immunizations. LNMP - Last Normal Menstrual Period. Nephrolithiasis. Anxiety Reaction. --00:51 Mae Reyes R.N. ADDITIONAL SURGERIES: Breast Augmentation. Hysterectomy. Lithotripsy. Repair of rectecle and bladder. Tummy Tuck. Uterine Ablation. --00:51 Mae Reyes R.N. Interventions ID band on patient. To treatment room. --00:44 Mae Reyes R.N. PHYSICAL ASSESSMENT Ambulatory to room. GENERAL / NEURO / PSYCH: Awake. Oriented X 4. Alert. Appears in no acute distress. Speech normal. Mood/affect normal. Moves all extremities equally. No motor deficit. No sensory deficit. NIH Stroke Scale: score 0. Performed at 00:45. Level of Consciousness: alert (0). LOC Questions: both (0). LOC Commands: both (0). Best gaze: normal (0). Visual field loss: none (0). Facial palsy: normal (0). Motor arm: no drift right arm (0) and no drift left arm (0). Motor leg: no drift right leg (0) and no drift left leg (0). Limb ataxia: none (0). Sensory loss: none (0). Aphasia: none (0). Dysarthria: normal (0). Extinction and inattention: none (0). HEENT: No facial asymmetry noted. Pupils equal, round and reactive to light. EOM intact. Pharynx within normal limits. RESPIRATORY: Breath sounds within normal limits. Respirations not labored. CVS: Normal sinus rhythm noted. Capillary refill less than 2 seconds. SKIN: Skin is intact, warm and dry. --00:45 Mae Reyes R.N. ( pt laughing and talking normally to spouse.). --00:45 Mae Reyes R.N. NURSING PROGRESS NOTES Patient gowned. Two patient identifiers checked. Call light placed in reach. Side rails up x 2. Bed placed in lowest position. Brakes of bed on. Patient ready for evaluation- chart flagged. --00:45 Mae Reyes R.N. 01:13 02/19/2017 Site #1 started via IV in the right forearm with an 20g angiocath, with aseptic technique and good blood return; one attempt. Blood drawn: rainbow set. Labeled in the presence of the patient and sent to the lab. Saline lock flushed with 10 mL saline. --01:25 Mae Reyes R.N. 01:17 02/19/2017 PHENERGAN (Promethazine HCl) IVP 25 mg given over 2 minute(s) via site #1. Allergies verified and confirmed 5 rights. IV patency established. IV site checked: no pain, redness, or swelling. IV flushed thoroughly pre- and post-medication administration. IVP given by RN. --: Mae Reyes R.N. 01:19 02/19/2017 Toradol IVP 30 mg given over 2 minute(s) via site #1. Allergies verified and confirmed 5 rights. IV patency established. IV site checked: no pain, redness, or swelling. IV flushed thoroughly pre- and post-medication administration. IVP given by RN. --: Mae Reyes R.N. 01:02/19/2017 Benadryl (DiphenhydrAMINE HCl) IVP 25 mg given over 2 minute(s) via site #1. Allergies verified, confirmed 5 rights and sedative warning given to the patient and patient's family. IV patency established. IV site checked: no pain, redness, or swelling. IV flushed thoroughly pre- and post-medication administration. IVP given by RN. --: Mae Reyes R.N. 02:24 02/19/2017 Fentanyl IVP 50 mcg given over 2 minute(s) via site #1. Allergies verified, confirmed 5 rights and sedative warning given to the patient and patient's family. IV patency established. IV site checked: no pain, redness, or swelling. IV flushed thoroughly pre- and post-medication administration. IVP given by RN. --: Mae Reyes R.N. 02:02/19/17. BP: 135/80 taken on the right arm, while lying. HR: 80 (regular and normal rate). RR: 18 (regular and unlabored). O2 saturation: 98% on room air. Temp: deferred. Pain level now: 02/28. --:28 Mae Reyes R.N. Overall patient status is the same- she states feels the same. ( pt c/o headache still pt is sleepy arouses to verbal stimuli but drifts back to sleep after medication, pt medicated per MD order.). GENERAL / NEURO / PSYCH: The patient reports occipital headache is still present and is currently moderate in severity and constant. Two patient identifiers checked. Call light placed in reach. Side rails up x 2. Bed placed in lowest position. Brakes of bed on. --:28 Mae Reyes R.N. 03:25 02/19/2017 Site #1 removed upon discharge. Catheter intact. Manual pressure and bandage applied. --03:29 Mae Reyes R.N. 03:25 02/19/2017 IV Saline Lock Drip IV Discontinued: completed upon discharge. Total amount infused: 0 mL. IV patency established. IV site checked: no pain, redness, or swelling. IV flushed thoroughly. --03:28 Mae Reyes R.N. DISPOSITION / DISCHARGE Departure time: 324. Condition at departure: improved and stable. No learning barriers present. Discharge instructions provided and reviewed with the patient and spouse. Reviewed medication(s) side effects, precautions, dosing and course information. Prescription(s) given to the patient. Reviewed referral to a color laboratory technician for followup. Patient and spouse verbalized understanding. Written instructions provided in Portuguese. The patient was discharged home and accompanied by spouse. She left the Emergency Department ambulatory and via private vehicle. Spouse driving. --03:34 Mae Reyes R.N. 03:25 02/19/17. BP: 106/58. HR: 76 (regular and normal rate). RR: 18 (regular and unlabored). O2 saturation: 98% on room air. Temp: deferred. Pain level now: 0/10. --03:34 Mae Reyes R.N. Locked/Released at 02/19/2017 3:35 by Mae Reyes R.N.
--- NOTE | 2017-02-19 03:15 | ED ORDER SUMMARY ---
..... Patient: HITESH DEGROOT OrderSheet [facility] VisitID: [id number] [place] [address] 41y, F Registration Date/Time: 02/19/2017 ORDER SHEET Weight: 66.2 kg (stated) Allergies: No Known Drug Allergy GENERAL ORDERS: CT Head wo Cont Urgent (00:38 02/19/2017 Hiro Newman) (Ack 0:40 AMcQuoid ER Tech1) (1:13 CBradburn R.N.) CBC w Diff Urgent (00:39 02/19/2017 Hiro Newman) (Ack 0:40 AMcQuoid ER Tech1) (1:13 CBradburn R.N.) CMP Urgent (00:39 02/19/2017 Hiro Newman) (Ack 0:40 AMcQuoid ER Tech1) (1:13 CLradburn R.N.) UA-Culture if indicated Urgent (00:39 02/19/2017 Hiro Newman) (Ack 0:40 AMcQuoid ER Tech1) (1:13 CBradburn R.N.) PT with INR Urgent (00:39 02/19/2017 Hiro Newman) (Ack 0:40 AMcQuoid ER Tech1) (1:13 CLradburn R.N.) TSH Urgent (00:39 02/19/2017 Hiro Newman) (Ack 0:40 AMcQuoid ER Tech1) (1:13 Earl R.N.) Pulse oximeter (00:39 02/19/2017 Hiro Newman) (Ack 0:40 AMcQuoid ER Tech1) (1:13 CBradburn R.N.) MEDICATION ORDERS: Phenergan IV 25 mg (HIGH ALERT MEDICATION, NOW) (00:38 02/19/2017 Hiro Newman) (Ack 1:13 CBradarlin R.N.) (1:26 CBradburn R.N.) - (compazine 10 mg IV once now) (02:14 02/19/2017 Hiro Newman) (Ack 2:17 CBradarlin R.N.) (Ack 2:20 HSoule) (Cancelled: Unavailable/Mat/Equip3:29 CBradarlin R.N.) IV FLUIDS: Benadryl IV 25 mg (NOW) (00:39 02/19/2017 Hiro Newman) (Ack 1:13 CBradarlin R.N.) (1:26 CBradburn R.N.) Toradol IV 30 mg (NOW) (00:39 02/19/2017 Hiro Newman) (Ack 1:13 Earl R.N.) (1:26 Earl R.N.) IV Saline Lock (00:39 02/19/2017 Hiro Newman) (Ack 1:13 Earl R.N.) (1:25 Earl R.N.) Fentanyl IV 50 mcg (HIGH ALERT MEDICATION, NOW) (02:13 02/19/2017 Hiro Newman) (Ack 2:17 CBradarlin R.N.) (Ack 2:20 HSoule) (2:26 CLradarlin R.N.) ORDER SHEET NOTES: [Electronically signed by Mae Reyes R.N. (03:35 02/19/2017)] [Electronically signed by Edgar Travis Dr. (07:02/19/2017)] [Electronically locked/signed by Mae Reyes R.N. (03:35 02/19/2017)]
--- NOTE | 2017-02-19 03:15 | ED CLINICAL REPORT ---
Clinical Report - Physicians/Mid Levels [facility] [address] [address] 02/19/2017 0:22 Patient: HITESH DEGROOT Time Seen: 0031; initial patient contact. Arrived- By private vehicle. Historian- patient. HISTORY OF PRESENT ILLNESS Chief Complaint: CHANGED MENTAL STATUS. This started past 5 days, is still present and patient was last known well (5 days ago). The patient has "felt strange". (patient states she sometimes mixes up her words.). The patient was not found unresponsive. No alcohol recently or recent drug use. The patient has had generalized weakness. No numbness or recent fall. No difficulty walking. Usually is alert and oriented X3 and usually has normal mobility. Similar symptoms previously: Once. ( when withdrawing from alcohol per significant other. states she has been clean since the.). Recent medical care: Not recently seen/assessed. REVIEW OF SYSTEMS The patient has had a moderate, constant headache (right sided). The headache was gradual in onset. The headache has been similar to previous ones. No chest pain or difficulty breathing. All systems otherwise negative, except as recorded above. PAST HISTORY See nurses notes. Medications: Chantix Oral (Tablet 1 mg) 1 tablet, dialy. Wellbutrin Oral 300mg, daily. Gabapentin Oral (Tablet 600 mg) 2 tablets, daily. Topamax Oral (Tablet 200 mg) 1 tablet, daily. Effexor XR Oral 225mg, daily. TraZODone HCl Oral (Tablet 100 mg) 2 tablets, at bedtime. Depakote Oral 1000 mg, daily. Allergies: No Known Drug Allergy. SOCIAL HISTORY Never smoker. Alcohol use. Patient is a recovering alcoholic. No drug use. No recent travel. Is a local resident. ADDITIONAL NOTES The nursing notes have been reviewed. PHYSICAL EXAM Vital Signs: 02/19/2017 00:25 BP: 141/83. HR: 79. RR: 18. O2 saturation: 97%. Temp: 97.9 F. Pain level now: 3/10. Oxygen saturation normal. Appearance: Alert. No acute distress. (Polite. Cooperative.). Head: Head atraumatic. Eyes: Pupils equal, round and reactive to light. ENT: Normal ENT inspection. Airway intact. Moist mucous membranes. Pharynx normal. Neck: Normal inspection. Neck supple. No meningeal signs. CVS: Normal heart rate and rhythm. Heart sounds normal. Pulses normal. Respiratory: No respiratory distress. Breath sounds normal. Abdomen: Soft and nontender. No organomegaly. Skin: Skin warm and dry. Normal skin color. No rash. Normal skin turgor. Extremities: Extremities exhibit normal ROM. No lower extremity edema. Neuro: Alert. Oriented X 3. Mood/affect normal. Speech normal. Cranial nerves normal (as tested). No cerebellar findings. No motor deficit. No sensory deficit. Reflexes normal. LABS, X-RAYS, AND EKG Laboratory Tests: UA-Culture if indicated: (ANKUSH: 02/19/2017 01:06) ( [facility] 02/19/2017 01:41) Final results Test Result Flag Units (Reference) URINE COLOR YELLOW URINE APPEARANCE CLEAR URINE GLUCOSE NEGATIVE (NEGATIVE) URINE BILIRUBIN NEGATIVE (NEGATIVE) URINE KETONE NEGATIVE (NEGATIVE) URINE SPECIFIC GRAVITY 1.010 (1.010-1.030) URINE PH 7.0 (5.0-8.0) URINE PROTEIN NEGATIVE (NEGATIVE) URINE UROBILINOGEN 0.2 EU/dL (0.2-1.0) URINE NITRITE NEGATIVE (NEGATIVE) URINE BLOOD NEGATIVE (NEGATIVE) URINE LEUK ESTERASE NEGATIVE (NEGATIVE) URINE RBC RARE rbc/hpf (0-1) URINE WBC 0-1 wbc/hpf (0-1) URINE EPITHELIAL CELLS 3-5 EPI/hpf (0-5) URINE BACTERIA NONE SEEN (NONE SEEN) URINE COMMENT CULT NOT INDICATED 1+ AMORPHOUSURINE CULTURES ARE SET-UP BASED ON THE FOLLOWING CRITERIA:POSITIVE NITRITEPOSITIVE LEUKOCYTE ESTERASEGREATER THAN 10 WHITE BLOOD CELLSMODERATE (2+) OR GREATER BACTERIA CBC w Diff: (ANKUSH: 02/19/2017 01:06) ( [facility] 02/19/2017 01:19) Final results Test Result Flag Units (Reference) WHITE BLOOD COUNT 10.2 K/uL (4.5-11.5) RED BLOOD COUNT 4.15 M/uL (4.00-5.20) HEMOGLOBIN 13.8 gm/dL (12.0-16.0) HEMATOCRIT 40.5 % (36.0-46.0) MEAN CELL VOLUME 98 fL (80-100) MEAN CORPUSCULAR HGB 33 pg (26-34) MEAN CORPUSCULAR HGB CONC 34 g/dL (31-37) RED CELL DISTRIBUTION WIDTH 12.4 % (11.6-14.8) PLATELET COUNT 225 K/uL (150-400) NEUTROPHIL % 54.1 % (50-75) LYMPH % 33.7 % (25-40) MONO % 8.6 % (3-14) EOSINOPHIL % 3.4 % (0-4) BASOPHIL % 0.2 % (0-2) PT with INR: (ANKUSH: 02/19/2017 01:06) ( [facility] 02/19/2017 01:38) Final results Test Result Flag Units (Reference) INR 1.1 (0.8-1.2) Low Intensity Therapy: INR 1.5-2.0 PT range 18.5-23.1Mod.Intensity Therapy: INR 2.0-3.0 PT range 23.1-31.5High Intensity Therapy: INR 2.5-3.5 PT range 27.4-35.5High Intensity Therapy 2: INR 3.0-4.0 PT range 31.5-39.3 CMP: (ANKUSH: 02/19/2017 01:06) ( [facility] 02/19/2017 01:41) Final results Test Result Flag Units (Reference) GLUCOSE 94 mg/dL (70-110) BUN 12 mg/dL (7-18) CREATININE 1.1 mg/dL (0.6-1.3) Estimated GFR 58.18 mL/min Estimated GFR- >60 mL/min Note: Persistent reduction over 3 months in eGFR<60 mL/min/1.73 m2 defines CKD. Patients with eGFR values>=60 mL/min/1.73 m2 may also have CKD if evidence ofpersistent proteinuria. Additional information may be foundat www.kidney.org. SODIUM 141 mmol/L (136-145) POTASSIUM 3.6 mmol/L (3.5-5.1) CHLORIDE 106 mmol/L (98-107) CARBON DIOXIDE 25 mmol/L (21-32) CALCIUM 8.5 mg/dL (8.5-10.1) TOTAL PROTEIN 7.2 g/dL (6.4-8.2) ALBUMIN 3.7 g/dL (3.3-5.0) BILIRUBIN, TOTAL 0.2 mg/dL (0.0-1.0) ALKALINE PHOSPHATASE 63 U/L (46-116) AST (SGOT) 11 L U/L (15-37) ALT (SGPT) 26 U/L (12-78) THYROID STIMULATING HORMONE 3.845 H uIU/mL (0.34-3.74) . PROGRESS AND PROCEDURES Course of Care: The patient is a pleasant 41-year-old female with complex past medical history presenting for evaluation of altered mental status. Patient has a nonfocal neurological examination. Symptoms have been ongoing for the past 5-6 days. Patient is also reporting a headache. At this time differential diagnosis is broad. Patient will be evaluated with a CT scan of the head for any acute intracranial abnormalities given patient's deficits. Patient is outside of the window for TPA. Patient also been evaluated for possible metabolic abnormalities which could potentially cause her symptoms today. Medications for headache provided. Patient is agreeable to the treatment and plan. The patient'ssymptoms significantly improved with the interventions provided here in the emergency department. Patient did require second dose of pain medication for the headache. Patient does not have any acute abnormalities on CT scan of the head or onlaboratory studies. Because of the patient's negative workup here in the emergency department, do not fill patient requires admission to the hospital or further emergency department workup/evaluation. Patient is a 30 establish care with a primary care Dr. Patient does have a scheduled appointmentin the next week or 2. Discussed with the patient and the patient's significant otherper patient's request there workup here in the emergency department including diagnosis, home care, follow-up, and return precautions. All questions have been answered. The patient and significant other expressed understanding of these instructions and was agreeable to them. Disposition: Discharged. Condition: good. CLINICAL IMPRESSION Acute mental status change with lethargy. 02/19/2017 02:26 BP: 135/80. HR: 80. RR: 18. O2 saturation: 98%. Pain level now: 7/10. Blood pressure normal. Oxygen saturation normal. INSTRUCTIONS Warnings: GENERAL WARNINGS: Return or contact your physician immediately if your condition worsens or changes unexpectedly, if not improving as expected, or if other problems arise. Specifically return if pain, vomiting, bleeding, breathing difficulty or fever. change in behavior, numbness, tingling, weakness. Your Current Medications: CONTINUE TAKING THE FOLLOWING MEDICATIONS: Chantix Oral : Tablet 1 mg, 1 tablet dialy. Depakote Oral : 1000 mg daily. Effexor XR Oral : 225mg daily. Gabapentin Oral : Tablet 600 mg, 2 tablets daily. Topamax Oral : Tablet 200 mg, 1 tablet daily. TraZODone HCl Oral : Tablet 100 mg, 2 tablets at bedtime. Wellbutrin Oral : 300mg daily. Prescription Medications: Compazine 10 mg tablets: take 1 orally every 8 hours as needed for nausea, vomiting or motion sickness. Dispense twenty (20). Substitution is permissible Follow-up: Return to the emergency department as needed. Follow up with your doctor in three days. Reason for referral: recheck today's concerns. Summary of care provided to patient via paper. Screening today revealed the patient's blood pressure to be in the normal range. The patient should follow up with a primary care provider for blood pressure management. Understanding of the discharge instructions verbalized by patient. Follow-up with: Arpita Crane MD, Nephrology, , [facility], [address] [place] [address], [place], [address] Follow up. Call for the next available appointment. Reason for referral: recheck today's concerns. Summary of care provided to patient via paper. (Electronically signed by Edgar Travis Dr. 02/19/2017 7:25)
--- NOTE | 2017-02-19 05:35 | DIAGNOSTIC IMAGING REPORT ---
PROCEDURE: CT HEAD WITHOUT CONTRAST INDICATION: MENTAL STATUS CHANGE TECHNIQUE: Noncontrast axial images with sagittal and coronal reformations. Preliminary report provided by Santo Barney MD ([facility]). COMPARISON: Compared to a head CT on 09/05/2013. FINDINGS: Brain and ventricles are normal. No evidence of an acute process or hemorrhage. Sinuses and mastoids are normal. IMPRESSION: 1. Negative head CT. 2. Preliminary report provided to Dr. Travis. All CT scans at this facility use dose modulation, iterative reconstruction, and/or weight-based dosing when appropriate to reduce radiation dose to as low as reasonably achievable.
--- NOTE | 2017-02-19 05:35 | DIAGNOSTIC IMAGING REPORT ---
PROCEDURE: CT HEAD WITHOUT CONTRAST INDICATION: MENTAL STATUS CHANGE TECHNIQUE: Noncontrast axial images with sagittal and coronal reformations. Preliminary report provided by Santo Barney MD ([facility]). COMPARISON: Compared to a head CT on 09/05/2013. FINDINGS: Brain and ventricles are normal. No evidence of an acute process or hemorrhage. Sinuses and mastoids are normal. IMPRESSION: 1. Negative head CT. 2. Preliminary report provided to Dr. Travis. All CT scans at this facility use dose modulation, iterative reconstruction, and/or weight-based dosing when appropriate to reduce radiation dose to as low as reasonably achievable.
--- NOTE | 2017-02-19 07:26 | ED MED RECONCILIATION SUMMARY ---
Patient: HITESH DEGROOT Medication Reconciliation Report [facility] VisitID: [id number] [address] [place] [address] 41y, F Registration Date/Time: 02/19/2017 Weight: 66.2 kg Height/Length: 63 in. BMI: 25.9 ALLERGIES: No Known Drug Allergy The patient's Home Medications are listed below: CONTINUE TAKING THE FOLLOWING MEDICATIONS: Chantix Oral (1 mg) 1 tablet, dialy Depakote Oral 1000 mg, daily Effexor XR Oral 225mg, daily Gabapentin Oral (600 mg) 2 tablets, daily Topamax Oral (200 mg) 1 tablet, daily TraZODone HCl Oral (100 mg) 2 tablets, at bedtime Wellbutrin Oral 300mg, daily The source(s) of the original Home Medication information: Not obtained. The following Medications were given to the patient in the Emergency Department: PHENERGAN [IVP] IVP 25 mg, administered: 02/19/2017 1:17:00 AM Benadryl [IVP] IVP 25 mg, administered: 02/19/2017 1:21:00 AM Toradol [IVP] IVP 30 mg, administered: 02/19/2017 1:19:00 AM Fentanyl [IVP] IVP 50 mcg, administered: 02/19/2017 2:24:00 AM The following Medications were prescribed to the patient: Compazine 10 mg tablets: take 1 orally every 8 hours as needed for nausea, vomiting or motion sickness. Dispense twenty (20). Substitution is permissible -- Edgar Travis Dr.
--- NOTE | 2017-02-19 07:26 | ED DISCHARGE INSTRUCTIONS ---
Patient: HITESH DEGROOT General Instructions [facility] VisitID: [id number] [address] [place] [address] 41y, F Registration Date/Time: 02/19/2017 Acute mental status change with lethargy. 02/19/2017 02:26 BP: 135/80. HR: 80. RR: 18. O2 saturation: 98%. Pain level now: 7/10. Blood pressure normal. Oxygen saturation normal. INSTRUCTIONS Warnings: GENERAL WARNINGS: Return or contact your physician immediately if your condition worsens or changes unexpectedly, if not improving as expected, or if other problems arise. Specifically return if pain, vomiting, bleeding, breathing difficulty or fever. change in behavior, numbness, tingling, weakness. Your Current Medications: CONTINUE TAKING THE FOLLOWING MEDICATIONS: Chantix Oral : Tablet 1 mg, 1 tablet dialy. Depakote Oral : 1000 mg daily. Effexor XR Oral : 225mg daily. Gabapentin Oral : Tablet 600 mg, 2 tablets daily. Topamax Oral : Tablet 200 mg, 1 tablet daily. TraZODone HCl Oral : Tablet 100 mg, 2 tablets at bedtime. Wellbutrin Oral : 300mg daily. Prescription Medications: Compazine 10 mg tablets: take 1 orally every 8 hours as needed for nausea, vomiting or motion sickness. Dispense twenty (20). Substitution is permissible Follow-up: Return to the emergency department as needed. Follow up with your doctor in three days. Reason for referral: recheck today's concerns. Summary of care provided to patient via paper. Screening today revealed the patient's blood pressure to be in the normal range. The patient should follow up with a primary care provider for blood pressure management. Understanding of the discharge instructions verbalized by patient. Follow-up with: Arpita Crane MD, Nephrology, , [facility], [address], [place], [id number] Follow up. Call for the next available appointment. Reason for referral: recheck today's concerns. Summary of care provided to patient via paper. ADDITIONAL INFORMATION Confusion Confusion is a change in a persons ability to think clearly. There may be trouble recognizing familiar people and places, or knowing what day it is. Memory, judgement and decision-making may also be affected. In severe cases there may be limited or no response to verbal commands. Confusion may occur suddenly or develop gradually over time. There are many injuries and medical conditions that can cause this problem. These include brain injury, side effect of medication, intoxication, withdrawal from drugs, infection, stroke, dementia,mental illness and other causes. The exam and testing today did not show the cause of this problem. Further testing will be needed. Specific treatment and hope for recovery depend on the cause of this symptom. Home Care: Be sure someone is with the confused person at all times. He/she should not be left alone or unsupervised. Keep medicines (prescription and [id number]) in a secure place, under the caregivers control. A person with confusion should not be allowed to take their own medicines.This needs to be supervised by the caregiver. Ways to help a person with confusion: Activities:Establish a daily routine. Change can be a source of stress for someone with confusion. Make a time schedule for common tasks such as: bathing, dressing, taking medicines, meals, going for walks, shopping, naps and bed time. Communication:Speak slowly and clearly with a gentle tone of voice. Use short simple words and sentences. Ask one question at a time. Do not interrupt, criticize or argue. Be calm and supportive. Use friendly facial expressions. Use pointing and touching to help communicate. If there has been loss of long-term memory, do not ask questions about past events. This would only cause frustration for the person. Behavioral tips:Use lists, signs, family photos, clocks and calendars as memory aids. Label cabinets and drawers. Try to distract, not confront, the patient. When he/she becomes frustrated or upset, redirect his/her attention to eating or some other activity of interest. Medical-Legal tips: If this proves to be a permanent condition, talk to your doctor and/or aluminizer about getting a Power of C Programmer for health care and for financial decisions. It is best to do this while the person can still sign legal documents and make his/jairo own legal decisions. Otherwise, a court order will be required. Follow-Up with the patients doctor or as advised by our staff for further testing. Get Prompt Medical Attention if any of the following occur: Frequent falling Refusal to eat or drink Violent behavior or behavior becomes too difficult to manage at home Increased drowsiness, or failure to respond normally Increasing headache, nausea or repeated vomiting Numbness or weakness of the face, one arm or one leg Slurred speech, trouble speaking, walking or seeing Fainting spell, dizziness or seizure Unexplained fever over 100.4 F (38.0 C) oral Prochlorperazine Maleate Oral tablet What is this medicine? PROCHLORPERAZINE (proe klor PER a zeen) helps to control severe nausea and vomiting. This medicine is also used to treat schizophrenia. It can also help patients who experience anxiety that is not due to psychological illness. How should I use this medicine? Take this medicine by mouth with a glass of water. Follow the directions on the prescription label. Take your doses at regular intervals. Do not take your medicine more often than directed. Do not stop taking this medicine suddenly. This can cause nausea, vomiting, and dizziness. Ask your doctor or health healthcare economics manager for advice. Talk to your director of global marketing regarding the use of this medicine in children. Special care may be needed. While this drug may be prescribed for children as young as 2 years for selected conditions, precautions do apply. What side effects may I notice from receiving this medicine? Side effects that you should report to your doctor or health healthcare economics manager as soon as possible: blurred vision breast enlargement in men or women breast milk in women who are not breast-feeding chest pain, fast or irregular heartbeat confusion, restlessness dark yellow or brown urine difficulty breathing or swallowing dizziness or fainting spells drooling, shaking, movement difficulty (shuffling walk) or rigidity fever, chills, sore throat involuntary or uncontrollable movements of the eyes, mouth, head, arms, and legs seizures stomach area pain unusually weak or tired unusual bleeding or bruising yellowing of skin or eyes Side effects that usually do not require medical attention (report to your doctor or health healthcare economics manager if they continue or are bothersome): difficulty passing urine difficulty sleeping headache sexual dysfunction skin rash, or itching What may interact with this medicine? Do not take this medicine with any of the following medications: amoxapine antidepressants like citalopram, escitalopram, fluoxetine, paroxetine, and sertraline deferoxamine dofetilide maprotiline tricyclic antidepressants like amitriptyline, clomipramine, imipramine, nortiptyline and others This medicine may also interact with the following medications: lithium medicines for pain phenytoin propranolol warfarin What if I miss a dose? If you miss a dose, take it as soon as you can. If it is almost time for your next dose, take only that dose. Do not take double or extra doses. Where should I keep my medicine? Keep out of the reach of children. Store at room temperature between 15 and 30 degrees C (59 and 86 degrees F). Protect from light. Throw away any unused medicine after the expiration date. What should I tell my health care provider before I take this medicine? They need to know if you have any of these conditions: blood disorders or disease dementia liver disease or jaundice Parkinson's disease uncontrollable movement disorder an unusual or allergic reaction to prochlorperazine, other medicines, foods, dyes, or preservatives or trying to get breast-feeding What should I watch for while using this medicine? Visit your doctor or health healthcare economics manager for regular checks on your progress. You may get drowsy or dizzy. Do not drive, use machinery, or do anything that needs mental alertness until you know how this medicine affects you. Do not stand or sit up quickly, especially if you are an older patient. This reduces the risk of dizzy or fainting spells. Alcohol may interfere with the effect of this medicine. Avoid alcoholic drinks. This medicine can reduce the response of your body to heat or cold. Dress spin table operator cold weather and stay hydrated in hot weather. If possible, avoid extreme temperatures like saunas, hot tubs, very hot or cold showers, or activities that can cause dehydration such as vigorous exercise. This medicine can make you more sensitive to the sun. Keep out of the sun. If you cannot avoid being in the sun, wear protective clothing and use sunscreen. Do not use sun lamps or tanning beds/booths. Your mouth may get dry. Chewing sugarless gum or sucking hard candy, and drinking plenty of water may help. Contact your doctor if the problem does not go away or is severe. You have been given the following additional information: Confusion Prochlorperazine Maleate Oral tablet (Electronically signed by Edgar Travis Dr. 02/19/2017 7:25)
--- NOTE | 2017-02-19 07:26 | ED DISCHARGE INSTRUCTIONS ---
Patient: HITESH DEGROOT General Instructions [facility] VisitID: [id number] [address] [place] [address] 41y, F Registration Date/Time: 02/19/2017 Acute mental status change with lethargy. 02/19/2017 02:26 BP: 135/80. HR: 80. RR: 18. O2 saturation: 98%. Pain level now: 7/10. Blood pressure normal. Oxygen saturation normal. INSTRUCTIONS Warnings: GENERAL WARNINGS: Return or contact your physician immediately if your condition worsens or changes unexpectedly, if not improving as expected, or if other problems arise. Specifically return if pain, vomiting, bleeding, breathing difficulty or fever. change in behavior, numbness, tingling, weakness. Your Current Medications: CONTINUE TAKING THE FOLLOWING MEDICATIONS: Chantix Oral : Tablet 1 mg, 1 tablet dialy. Depakote Oral : 1000 mg daily. Effexor XR Oral : 225mg daily. Gabapentin Oral : Tablet 600 mg, 2 tablets daily. Topamax Oral : Tablet 200 mg, 1 tablet daily. TraZODone HCl Oral : Tablet 100 mg, 2 tablets at bedtime. Wellbutrin Oral : 300mg daily. Prescription Medications: Compazine 10 mg tablets: take 1 orally every 8 hours as needed for nausea, vomiting or motion sickness. Dispense twenty (20). Substitution is permissible Follow-up: Return to the emergency department as needed. Follow up with your doctor in three days. Reason for referral: recheck today's concerns. Summary of care provided to patient via paper. Screening today revealed the patient's blood pressure to be in the normal range. The patient should follow up with a primary care provider for blood pressure management. Understanding of the discharge instructions verbalized by patient. Follow-up with: Arpita Crane MD, Nephrology, , [facility], [address], [place], [id number] Follow up. Call for the next available appointment. Reason for referral: recheck today's concerns. Summary of care provided to patient via paper. ADDITIONAL INFORMATION Confusion Confusion is a change in a persons ability to think clearly. There may be trouble recognizing familiar people and places, or knowing what day it is. Memory, judgement and decision-making may also be affected. In severe cases there may be limited or no response to verbal commands. Confusion may occur suddenly or develop gradually over time. There are many injuries and medical conditions that can cause this problem. These include brain injury, side effect of medication, intoxication, withdrawal from drugs, infection, stroke, dementia,mental illness and other causes. The exam and testing today did not show the cause of this problem. Further testing will be needed. Specific treatment and hope for recovery depend on the cause of this symptom. Home Care: Be sure someone is with the confused person at all times. He/she should not be left alone or unsupervised. Keep medicines (prescription and htch-ecr-[id number]) in a secure place, under the caregivers control. A person with confusion should not be allowed to take their own medicines.This needs to be supervised by the caregiver. Ways to help a person with confusion: Activities:Establish a daily routine. Change can be a source of stress for someone with confusion. Make a time schedule for common tasks such as: bathing, dressing, taking medicines, meals, going for walks, shopping, naps and bed time. Communication:Speak slowly and clearly with a gentle tone of voice. Use short simple words and sentences. Ask one question at a time. Do not interrupt, criticize or argue. Be calm and supportive. Use friendly facial expressions. Use pointing and touching to help communicate. If there has been loss of long-term memory, do not ask questions about past events. This would only cause frustration for the person. Behavioral tips:Use lists, signs, family photos, clocks and calendars as memory aids. Label cabinets and drawers. Try to distract, not confront, the patient. When he/she becomes frustrated or upset, redirect his/her attention to eating or some other activity of interest. Medical-Legal tips: If this proves to be a permanent condition, talk to your doctor and/or travel journalist about getting a Power of Machine Brush Maker for health care and for financial decisions. It is best to do this while the person can still sign legal documents and make his/jairo own legal decisions. Otherwise, a court order will be required. Follow-Up with the patients doctor or as advised by our staff for further testing. Get Prompt Medical Attention if any of the following occur: Frequent falling Refusal to eat or drink Violent behavior or behavior becomes too difficult to manage at home Increased drowsiness, or failure to respond normally Increasing headache, nausea or repeated vomiting Numbness or weakness of the face, one arm or one leg Slurred speech, trouble speaking, walking or seeing Fainting spell, dizziness or seizure Unexplained fever over 100.4 F (38.0 C) oral Prochlorperazine Maleate Oral tablet What is this medicine? PROCHLORPERAZINE (proe klor PER a zeen) helps to control severe nausea and vomiting. This medicine is also used to treat schizophrenia. It can also help patients who experience anxiety that is not due to psychological illness. How should I use this medicine? Take this medicine by mouth with a glass of water. Follow the directions on the prescription label. Take your doses at regular intervals. Do not take your medicine more often than directed. Do not stop taking this medicine suddenly. This can cause nausea, vomiting, and dizziness. Ask your doctor or health care director rn for advice. Talk to your adult caregiver regarding the use of this medicine in children. Special care may be needed. While this drug may be prescribed for children as young as 2 years for selected conditions, precautions do apply. What side effects may I notice from receiving this medicine? Side effects that you should report to your doctor or health care director rn as soon as possible: blurred vision breast enlargement in men or women breast milk in women who are not breast-feeding chest pain, fast or irregular heartbeat confusion, restlessness dark yellow or brown urine difficulty breathing or swallowing dizziness or fainting spells drooling, shaking, movement difficulty (shuffling walk) or rigidity fever, chills, sore throat involuntary or uncontrollable movements of the eyes, mouth, head, arms, and legs seizures stomach area pain unusually weak or tired unusual bleeding or bruising yellowing of skin or eyes Side effects that usually do not require medical attention (report to your doctor or health care director rn if they continue or are bothersome): difficulty passing urine difficulty sleeping headache sexual dysfunction skin rash, or itching What may interact with this medicine? Do not take this medicine with any of the following medications: amoxapine antidepressants like citalopram, escitalopram, fluoxetine, paroxetine, and sertraline deferoxamine dofetilide maprotiline tricyclic antidepressants like amitriptyline, clomipramine, imipramine, nortiptyline and others This medicine may also interact with the following medications: lithium medicines for pain phenytoin propranolol warfarin What if I miss a dose? If you miss a dose, take it as soon as you can. If it is almost time for your next dose, take only that dose. Do not take double or extra doses. Where should I keep my medicine? Keep out of the reach of children. Store at room temperature between 15 and 30 degrees C (59 and 86 degrees F). Protect from light. Throw away any unused medicine after the expiration date. What should I tell my health care provider before I take this medicine? They need to know if you have any of these conditions: blood disorders or disease dementia liver disease or jaundice Parkinson's disease uncontrollable movement disorder an unusual or allergic reaction to prochlorperazine, other medicines, foods, dyes, or preservatives or trying to get breast-feeding What should I watch for while using this medicine? Visit your doctor or health care director rn for regular checks on your progress. You may get drowsy or dizzy. Do not drive, use machinery, or do anything that needs mental alertness until you know how this medicine affects you. Do not stand or sit up quickly, especially if you are an older patient. This reduces the risk of dizzy or fainting spells. Alcohol may interfere with the effect of this medicine. Avoid alcoholic drinks. This medicine can reduce the response of your body to heat or cold. Dress pipe line maintenance supervisor cold weather and stay hydrated in hot weather. If possible, avoid extreme temperatures like saunas, hot tubs, very hot or cold showers, or activities that can cause dehydration such as vigorous exercise. This medicine can make you more sensitive to the sun. Keep out of the sun. If you cannot avoid being in the sun, wear protective clothing and use sunscreen. Do not use sun lamps or tanning beds/booths. Your mouth may get dry. Chewing sugarless gum or sucking hard candy, and drinking plenty of water may help. Contact your doctor if the problem does not go away or is severe. You have been given the following additional information: Confusion Prochlorperazine Maleate Oral tablet (Electronically signed by Edgar Travis Dr. 02/19/2017 7:25)
--- NOTE | 2017-02-19 07:26 | ED MAR SUMMARY ---
..... Medication Administration Record [facility] [address] [place] [address] Patient: HITESH DEGROOT Visit ID: [id number] 41y, F Weight: 66.2 kg Height/Length: 63 in BMI: 25.9 ALLERGIES: No Known Drug Allergy Given 01:17 02/19/2017 Mae Reyes R.N. Medication Administered: PHENERGAN [IVP] (PROMETHAZINE HCL), Dose: 25 mg IVP over 2 minute(s), Site: #1 right forearm. Medication Ordered: Phenergan IV 25 mg (HIGH ALERT MEDICATION, NOW). Given 01:02/19/2017 Mae Reyes R.N. Medication Administered: TORADOL [IVP], Dose: 30 mg IVP over 2 minute(s), Site: #1 right forearm. Medication Ordered: Toradol IV 30 mg (NOW). Given 01:02/19/2017 Mae Reyes R.N. Medication Administered: BENADRYL [IVP] (DIPHENHYDRAMINE HCL), Dose: 25 mg IVP over 2 minute(s), Site: #1 right forearm. Medication Ordered: Benadryl IV 25 mg (NOW). Given 02:02/19/2017 Mae Reyes R.N. Medication Administered: FENTANYL [IVP], Dose: 50 mcg IVP over 2 minute(s), Site: #1 right forearm. Medication Ordered: Fentanyl IV 50 mcg (HIGH ALERT MEDICATION, NOW).
--- NOTE | 2017-02-19 07:26 | ED MAR SUMMARY ---
..... Medication Administration Record [facility] [address] [place] [address] Patient: HTIESH DEGROOT Visit ID: [id number] 41y, F Weight: 66.2 kg Height/Length: 63 in BMI: 25.9 ALLERGIES: No Known Drug Allergy Given 01:17 02/19/2017 Mae Reyes R.N. Medication Administered: PHENERGAN [IVP] (PROMETHAZINE HCL), Dose: 25 mg IVP over 2 minute(s), Site: #1 right forearm. Medication Ordered: Phenergan IV 25 mg (HIGH ALERT MEDICATION, NOW). Given 01:02/19/2017 Mae Reyes R.N. Medication Administered: TORADOL [IVP], Dose: 30 mg IVP over 2 minute(s), Site: #1 right forearm. Medication Ordered: Toradol IV 30 mg (NOW). Given 01:02/19/2017 Mae Reyes R.N. Medication Administered: BENADRYL [IVP] (DIPHENHYDRAMINE HCL), Dose: 25 mg IVP over 2 minute(s), Site: #1 right forearm. Medication Ordered: Benadryl IV 25 mg (NOW). Given 02:02/19/2017 Mae Reyes R.N. Medication Administered: FENTANYL [IVP], Dose: 50 mcg IVP over 2 minute(s), Site: #1 right forearm. Medication Ordered: Fentanyl IV 50 mcg (HIGH ALERT MEDICATION, NOW).
--- NOTE | 2017-02-19 07:26 | ED MED RECONCILIATION SUMMARY ---
Patient: HITESH DEGROOT Medication Reconciliation Report VisitID: [id number] [address] [place] [address] 41y, F Registration Date/Time: 02/19/2017 Weight: 66.2 kg Height/Length: 63 in. BMI: 25.9 ALLERGIES: No Known Drug Allergy The patient's Home Medications are listed below: CONTINUE TAKING THE FOLLOWING MEDICATIONS: Chantix Oral (1 mg) 1 tablet, dialy Depakote Oral 1000 mg, daily Effexor XR Oral 225mg, daily Gabapentin Oral (600 mg) 2 tablets, daily Topamax Oral (200 mg) 1 tablet, daily TraZODone HCl Oral (100 mg) 2 tablets, at bedtime Wellbutrin Oral 300mg, daily The source(s) of the original Home Medication information: Not obtained. The following Medications were given to the patient in the Emergency Department: PHENERGAN [IVP] IVP 25 mg, administered: 02/19/2017 1:17:00 AM Benadryl [IVP] IVP 25 mg, administered: 02/19/2017 1:21:00 AM Toradol [IVP] IVP 30 mg, administered: 02/19/2017 1:19:00 AM Fentanyl [IVP] IVP 50 mcg, administered: 02/19/2017 2:24:00 AM The following Medications were prescribed to the patient: Compazine 10 mg tablets: take 1 orally every 8 hours as needed for nausea, vomiting or motion sickness. Dispense twenty (20). Substitution is permissible -- Edgar Travis Dr.
== END 2017-02-19 03:25 | disposition home or self-care (01) ==
LOC: ED SRH 00:21
DX: R41.82 Altered mental status, unspecified (principal); R53.83 Other fatigue; R51 Headache; I10 Essential (primary) hypertension; Z79.899 Other long term (current) drug therapy
CPT/HCPCS: 90004; 90100; 91028; 91172; 91173; 91284; 92010; 93080; 93140; 94060; 95059